=== PATIENT | male | born 1950 | race Caucasian/White ===

== ENCOUNTER 2021-09-03 12:07 | Inpatient (IN) | payer MEDICARE, OTHER ==
[2021-09-03] MEDS ORDERED: Sodium Chloride 0.9% 10 ML Syringe FLUSH PRN (12:34)
[2021-09-03] MEDS ORDERED: Sodium Chloride 0.9% 2.5 ML Syringe FLUSH PRN (12:34)
[2021-09-03] MEDS ORDERED: methylPREDNISolone Sodium Succinate 125 MG/2 ML SDV IVPUSH ONE (13:26)
[2021-09-03] MEDS ORDERED: Albuterol/Ipratropium 3.0-0.5 MG/3 ML Neb Soln NEB ONE (13:26)
[2021-09-03 14:19] LABS: CARBON DIOXIDE,CO2 34.3 mmol/L (21.0-32.0); POTASSIUM,K 3.8 mmol/L (3.5-5.1)
[2021-09-03 14:26] LABS: ESTIMATED GFR 71.3 ml/min
[2021-09-03] MEDS ORDERED: Aspirin 81 MG Tab.Chew PO ONE (14:38)
[2021-09-03 15:09] LABS: CORONAVIRUS COVID-19 NAA NEGATIVE (NEGATIVE); INFLUENZA A NAA NEGATIVE (NEGATIVE); INFLUENZA B NAA NEGATIVE (NEGATIVE)
[2021-09-03] MEDS ORDERED: Sodium Chloride 0.9% 1,000 ML IV ONE (19:44)
[2021-09-03] MEDS ORDERED: Albuterol/Ipratropium 3.0-0.5 MG/3 ML Neb Soln ONE (23:15)
[2021-09-03] MEDS: Apixaban 5 MG Tab PO SCH (23:20)
[2021-09-03] MEDS: Albuterol/Ipratropium 3.0-0.5 MG/3 ML Neb Soln NEB SCH (23:20)
[2021-09-04] MEDS: Albuterol/Ipratropium 3.0-0.5 MG/3 ML Neb Soln NEB SCH ×4 (06:03→23:23)
[2021-09-04 07:18] LABS: CARBON DIOXIDE,CO2 29.7 mmol/L (21.0-32.0); POTASSIUM,K 3.6 mmol/L (3.5-5.1)
[2021-09-04] MEDS: Apixaban 5 MG Tab PO SCH ×2 (09:19→20:23)
[2021-09-04] MEDS: Pantoprazole 40 MG Tab.CR PO SCH (09:19)
[2021-09-04] MEDS: methylPREDNISolone Sodium Succinate 40 MG/1 ML SDV IVPUSH SCH (09:20)
[2021-09-05] MEDS: Albuterol/Ipratropium 3.0-0.5 MG/3 ML Neb Soln NEB SCH ×4 (05:58→19:48)
[2021-09-05 06:56] LABS: CARBON DIOXIDE,CO2 32.3 mmol/L (21.0-32.0); POTASSIUM,K 4.1 mmol/L (3.5-5.1)
[2021-09-05] MEDS: methylPREDNISolone Sodium Succinate 40 MG/1 ML SDV IVPUSH SCH (08:47)
[2021-09-05] MEDS: Pantoprazole 40 MG Tab.CR PO SCH (08:48)
[2021-09-05] MEDS: Apixaban 5 MG Tab PO SCH (08:49)
[2021-09-05] MEDS ORDERED: hydrOXYzine Pamoate 25 MG Cap PO ONE (15:22)
== END 2021-09-05 19:35 | disposition home health service (06) | DRG 189 ==
LOC: MW.ED 12:07 → MW.MS 19:10
PROVIDERS: ADMIT Internal Medicine; ATTEND Internal Medicine
DX: J96.01 Acute respiratory failure with hypoxia (principal); J43.9 Emphysema, unspecified; I48.91 Unspecified atrial fibrillation; R77.8 Other specified abnormalities of plasma proteins; R26.81 Unsteadiness on feet; I10 Essential (primary) hypertension; N40.0 Benign prostatic hyperplasia without lower urinary tract symptoms; Z20.822 Contact with and (suspected) exposure to COVID-19; D64.9 Anemia, unspecified; Z79.01 Long term (current) use of anticoagulants; Z79.899 Other long term (current) drug therapy; Z79.52 Long term (current) use of systemic steroids; Z87.891 Personal history of nicotine dependence
CPT/HCPCS: 0240U; 36415; 71046; 80048; 80053; 83735; 84100; 84484; 85014; 85018; 85025; 93005; 94640; 96374; 97110; 97112; 97161; 97530; 99285; 71045; 93010; A9270-GY; J2920; J2930; J3490; J7030; J7620-GY